=== PATIENT | male | born 1955 | race Caucasian/White ===

== ENCOUNTER 2016-09-22 10:42 | Emergency (ER) | payer SELFPAY ==
--- NOTE | 2016-09-22 15:41 | Emergency Department Report ---
Entered by SYDNEY MOJICA, acting as scribe for SIA GARCIA PA. Chief Complaint: Skin Rash Stated Complaint: ABDOMINAL PAIN Time Seen by Provider: 09/22/16 11:51 - HPI History of Present Illness: 60 y/o male with PMHx of diabetes, presents to the ED c/o painful rash from the right side abdomen to the back beginning 6 days ago. He states the symptoms may be due to shingles. 10/10 severity. No other complaints. - ROS Review of Systems: SKIN: positive for rash from the right side of the abdomen to the back Musculoskeletal/Extremity: positive for pain in the affected area of the rash. All other systems reviewed and negative. - Exam Vital Signs: Vital Signs 09/22/16 10:51 Temperature 97.9 F Pulse Rate 72 Respiratory 20 Rate Blood Pressure 121/74 O2 Sat by Pulse 100 Oximetry Physical Exam: Constitutional: Non toxic appearing, NAD. Cardiovascular: Normal rate and rhythm with normal S1/S2 sounds. Respiratory: No respiratory distress. Lung sounds clear to auscultation bilaterally. Abdomen: Abdomen is non-distended, soft with no tenderness to palpation in all quadrants. SKIN: erythematous, raised pustular lesions spread across the dermatome RLQ around to the right flank, consistent with herpes zoster shingles. MSE screening note: Focused history and physical exam performed. Due to findings the following was ordered: ED Medical Decision Making - Medical Decision Making Alert and oriented x3. Patient will be seen by provider in fast track. No acute distress, patient is stable. ED Disposition for MSE Condition: Stable Referrals: PRIMARY CARE,MD [Primary Care Provider] - 3-5 Days This documentation as recorded by the scribe,SYDNEY MOJICA,accurately reflects the service I personally performed and the decisions made by RADHA smith OYINLOLA A, PA.
[2016-09-22] MEDS ORDERED: MOTRIN PO ONE (21:07)
[2016-09-22] MEDS ORDERED: MORPHINE IM ONE (21:07)
--- NOTE | 2016-09-22 21:07 | Emergency Department Report ---
ED General Adult HPI - General Chief complaint: Skin Rash Stated complaint: ABDOMINAL PAIN Time Seen by Provider: 09/22/16 11:50 Source: patient, family Mode of arrival: Ambulatory Limitations: No Limitations - History of Present Illness Initial comments: This is a 60-year-old male. The patient is previously unknown to me. He does not have a local primary care doctor. He reports a medical history of diabetes. The patient presents to the ER with a painful vesicular rash that started 4 days ago. No fevers or chills. No chest pain or shortness of breath. No nausea, vomiting or diaphoresis. Patient can't recall having a history of shingles in the past. There is no testicular pain. The pain from the rash is sharp. The pain worsens with palpation. It decreases with rest. -: Gradual, days(s) (4) Location: abdomen Radiation: back Quality: sharp Improves with: rest Worsens with: movement Associated Symptoms: denies other symptoms - Related Data Previous Rx's Medication Instructions Recorded Last Taken Type Sulfamethoxazole/Trimethoprim 1 each PO BID #20 tablet 10/13/14 Unknown Rx [Bactrim Ds] Clindamycin [Clindamycin CAP] 300 mg PO Q8H #30 cap 10/23/14 Unknown Rx oxyCODONE /ACETAMINOPHEN [Percocet 1 tab PO Q6HR PRN #20 tablet 10/23/14 Unknown Rx 5/325 mg] Acyclovir [Zovirax Tab] 800 mg PO 5XD #35 tab 09/22/16 Unknown Rx Ibuprofen [Motrin] 600 mg PO Q8H PRN #30 tablet 09/22/16 Unknown Rx Ondansetron [Zofran Odt] 4 mg PO QID PRN #20 tab.rapdis 09/22/16 Unknown Rx Pramoxine HCl/Calamine [Calamine 177 ml TP Q4HR PRN #1 lotion 09/22/16 Unknown Rx Medicated Lotion] oxyCODONE [Roxicodone] 5 mg PO Q6HR PRN #20 tablet 09/22/16 Unknown Rx Allergies Allergy/AdvReac Type Severity Reaction Status Date / Time No Known Allergies Allergy Verified 10/14/14 00:26 ED Review of Systems ROS: Stated complaint: ABDOMINAL PAIN Other details as noted in HPI Constitutional: denies: fever Eyes: denies: vision change ENT: denies: epistaxis Respiratory: denies: cough Cardiovascular: denies: palpitations Gastrointestinal: denies: vomiting Genitourinary: as per HPI Skin: rash, lesions Neurological: as per HPI Psychiatric: as per HPI ED Past Medical Hx - Past Medical History Previous Medical History?: Yes Hx Diabetes: Yes - Surgical History Past Surgical History?: Yes Additional Surgical History: cyst removed from right neck - Social History Smoking Status: Never Smoker Substance Use Type: Prescribed - Medications Home Medications: Home Medications Medication Instructions Recorded Confirmed Last Taken Type Sulfamethoxazole/Trimethoprim 1 each PO BID #20 tablet 10/13/14 Unknown Rx [Bactrim Ds] Clindamycin [Clindamycin CAP] 300 mg PO Q8H #30 cap 10/23/14 Unknown Rx oxyCODONE /ACETAMINOPHEN [Percocet 1 tab PO Q6HR PRN #20 tablet 10/23/14 Unknown Rx 5/325 mg] Acyclovir [Zovirax Tab] 800 mg PO 5XD #35 tab 09/22/16 Unknown Rx Ibuprofen [Motrin] 600 mg PO Q8H PRN #30 tablet 09/22/16 Unknown Rx Ondansetron [Zofran Odt] 4 mg PO QID PRN #20 tab.rapdis 09/22/16 Unknown Rx Pramoxine HCl/Calamine [Calamine 177 ml TP Q4HR PRN #1 lotion 09/22/16 Unknown Rx Medicated Lotion] oxyCODONE [Roxicodone] 5 mg PO Q6HR PRN #20 tablet 09/22/16 Unknown Rx ED Physical Exam - General Limitations: No Limitations General appearance: alert, in no apparent distress - Head Head exam: Present: atraumatic, normocephalic - Eye Eye exam: Present: normal appearance, EOMI. Absent: nystagmus - ENT ENT exam: Present: normal exam, normal orophraynx, mucous membranes moist, normal external ear exam - Neck Neck exam: Present: normal inspection, full ROM. Absent: tenderness, meningismus - Respiratory Respiratory exam: Present: normal lung sounds bilaterally. Absent: respiratory distress, wheezes, rales, rhonchi, stridor, chest wall tenderness - Cardiovascular Cardiovascular Exam: Present: regular rate, normal rhythm, normal heart sounds. Absent: bradycardia, tachycardia, irregular rhythm, systolic murmur, diastolic murmur, rubs, gallop - GI/Abdominal GI/Abdominal exam: Present: soft, normal bowel sounds. Absent: distended, tenderness, guarding, rebound, rigid, pulsatile mass - Rectal Rectal exam: Present: deferred - Extremities Exam Extremities exam: Present: normal inspection, full ROM, normal capillary refill. Absent: pedal edema, joint swelling, calf tenderness - Back Exam Back exam: Present: normal inspection, full ROM. Absent: tenderness, CVA tenderness (R), CVA tenderness (L), muscle spasm, paraspinal tenderness, vertebral tenderness - Neurological Exam Neurological exam: Present: alert, normal gait, other (Extraocular movements intact. Tongue midline. No facial droop. Facial sensation intact to light touch in the V1, V2, V3 distribution bilaterally. 5 and 5 strength in 4 extremities.. Sensation is intact to light touch in 4 extremities.). Absent: motor sensory deficit - Psychiatric Psychiatric exam: Present: normal affect, normal mood - Skin Skin exam: Present: warm, rash, vesicles (on the right side of the abdomen, there is a vesicular lash in the T11 distribution. This does not appear to be superinfected. Vesicles are noted.) ED Course Vital Signs 09/22/16 09/22/16 09/22/16 10:51 21:17 21:18 Temperature 97.9 F Pulse Rate 72 71 Respiratory 20 16 16 Rate Blood Pressure 121/74 Blood Pressure 134/76 [Left] O2 Sat by Pulse 100 97 97 Oximetry 09/22/16 09/22/16 21:26 21:28 Temperature Pulse Rate Respiratory 17 17 Rate Blood Pressure Blood Pressure [Left] O2 Sat by Pulse Oximetry ED Medical Decision Making - Lab Data Vital Signs 09/22/16 09/22/16 09/22/16 10:51 21:17 21:18 Temperature 97.9 F Pulse Rate 72 71 Respiratory 20 16 16 Rate Blood Pressure 121/74 Blood Pressure 134/76 [Left] O2 Sat by Pulse 100 97 97 Oximetry - Medical Decision Making Differential diagnosis: Uncomplicated herpes zoster Assessment and plan: 60-year-old male with one dermatomal distribution of uncomplicated herpes zoster. There does not appear to be a superinfection. He is afebrile with reassuring vital signs, and is tolerating liquid feeds. The patient presents 4 days into his symptoms. He will be given pain medication in the ER. He will be discharged with a 7 day supply of acyclovir, pain medication , nausea medication, calamine lotion, instructions to follow up with outpatient primary care. Return precautions are reviewed. Critical care attestation.: If time is entered above; I have spent that time in minutes in the direct care of this critically ill patient, excluding procedure time. ED Disposition Clinical Impression: Zoster Disposition: DC-01 TO HOME OR SELFCARE Is pt being admited?: No Does the pt Need Aspirin: No Condition: Good Instructions: Herpes Zoster (ED) Additional Instructions: Rash is suggestive of shingles/herpes zoster. Take the Motrin as directed for pain. Take the oxycodone as directed for pain. If taking the oxycodone, do not drive, consume alcohol, making poor decisions. Use the calamine lotion as needed for itching/pain. Take the Zofran as needed for nausea and vomiting. Take the acyclovir 5 times daily as directed. The acyclovir may cause abdominal cramping, nausea and vomiting. Follow-up with a primary care doctor within the next 7-[address] Myles Wynne is a local primary care doctor. [facility] is a local medical clinic available for your convenience. Return to the ER right away with new pain, worsened pain, migration of pain, fevers, chills, confusion, change in mental status, projectile vomiting, inability to tolerate liquid feeds. El sarpullido es sugestivo de herpes zoster. [place] el Motrin jeff se indica para el dolor. [place] la oxicodona segn lo indicado para el dolor. Si renetta la oxicodona, no conduzca, consuma alcohol, renetta decisiones pobres. Use la locin de calamina segn sea necesario para picazn / dolor. [place] el Zofran segn sea necesario para las nuseas y los vmitos. [place] el aciclovir 5 veces al da segn las indicaciones. El aciclovir puede causar clicos abdominales, nuseas y vmitos. Seguimiento con un mdico de atencin primaria dentro de los prximos 7-[address] Myles Wynne es un mdico local de atencin primaria. La clnica del lado sanna es gilmar clnica mdica local disponible para [place] conveniencia. Regreso al ER de inmediato con dolor nuevo, dolor empeorado, migracin de dolor , fiebres, escalofros, confusin, cambio en el estado mental, vmitos de proyectiles, incapacidad para tolerar alimentos lquidos. Prescriptions: Acyclovir [Zovirax Tab] 800 mg PO 5XD #35 tab Ibuprofen [Motrin] 600 mg PO Q8H PRN #30 tablet PRN Reason: Pain Ondansetron [Zofran Odt] 4 mg PO QID PRN #20 tab.rapdis PRN Reason: Nausea oxyCODONE [Roxicodone] 5 mg PO Q6HR PRN #20 tablet PRN Reason: Pain Pramoxine HCl/Calamine [Calamine Medicated Lotion] 177 ml TP Q4HR PRN #1 lotion PRN Reason: Pain Referrals: PRIMARY CAREMD [Primary Care Provider] - 3-5 Days MYLES WYNNE MD [Staff Physician] - 3-5 Days [facility] [Provider Group] - 3-5 Days
[2016-09-22 21:18] VITALS: BP 134/76
== END 2016-09-22 21:37 | disposition home or self-care (01) ==
LOC: ED 10:42
DX: B02.9 Zoster without complications (principal); E11.9 Type 2 diabetes mellitus without complications
CPT/HCPCS: 96372; 99282; J2270